=== PATIENT | male | born 1975 | race Caucasian/White ===

== ENCOUNTER 2022-08-24 22:58 | Emergency (ER) | payer OTHER, SELFPAY | END 2022-08-24 23:55 | disposition home or self-care (01) | LOC: BURERS 22:58 | DX: S61.011A Laceration without foreign body of right thumb without damage to nail, initial encounter (principal); E11.9 Type 2 diabetes mellitus without complications; F17.200 Nicotine dependence, unspecified, uncomplicated; J45.909 Unspecified asthma, uncomplicated; W26.0XXA Contact with knife, initial encounter | CPT/HCPCS: 99282 ==